=== PATIENT | male | born 1965 | race Caucasian/White ===

== ENCOUNTER → 2019-01-26 | Outpatient (CLI) | payer OTHER | LOC: CAT 09:56 | DX: Z13.6 Encounter for screening for cardiovascular disorders (principal); E78.00 Pure hypercholesterolemia, unspecified; I25.10 Atherosclerotic heart disease of native coronary artery without angina pectoris ==

== ENCOUNTER 2019-03-28 07:53 | Outpatient (CLI) | payer OTHER ==
[2019-03-28] VITALS (15 sets, daily range): BP systolic 111–137; BP diastolic 66–86
[~2019-03-28] VITALS: Ht 180.3 cm; Wt 124.3 kg
[2019-03-28 08:36] LABS: HEMATOCRIT 42.5 % (42.0-52.0); HEMOGLOBIN 14.3 gm/dL (14.0-18.0); MCH 31.4 pg (26.0-34.0); MCHC 33.6 g/dL (28.0-37.0); MCV 93.6 fL (80.0-100.0); RBC 4.54 mil/uL (4.50-6.00); RDW 13.5 % (10.5-14.5); WBC 7.7 thou/uL (4.0-11.0)
[2019-03-28] MEDS ORDERED: TOPROL XL50 MG PO (09:00)
[2019-03-28] MEDS ORDERED: PRINIVIL20 M1 PO (09:00)
[2019-03-28] MEDS ORDERED: LIPITOR 20 MG T20 M1 PO (09:01)
[2019-03-28] MEDS ORDERED: NEXIUM20 MG PO (09:03)
[2019-03-28] MEDS ORDERED: UNICOMPLEX M TA1 TA1 PO (09:03)
[2019-03-28] MEDS ORDERED: FISH OIL 1,001000 M3 (09:04)
[2019-03-28 09:07] LABS: CALCIUM 9.5 mg/dL (8.5-10.1); POTASSIUM 4.2 mmol/L (3.5-5.1)
[2019-03-28] MEDS ORDERED: MAG-OXIDE400 MG PO (09:18)
[2019-03-28] MEDS ORDERED: SLOW FE142 MG PO (09:19)
--- NOTE | 2019-03-28 13:32 | CATHLAB ---
[facility] [place] [place] [address] INVASIVE PROCEDURE REPORT Name: ARTURO TOBIN Room #: REG [facility]#: [id number] Admission: 03/28/19 Attend Phys: Malachi Mackenzie MD Discharge: Date of : 63 Report #: [id number] THIS REPORT FOR: //name// APPROVED REPORT Study performed: 03/28/2019 08:55:34 Patient Details Patient Status: Out-Patient Room #: The patient is a 53 year-old male Event Personnel Malachi Mackenzie Weatherseal Technician, Orlando Carter RN, Rupal Novak RN RN, Kartik Vera RTCheyenne Acevedo David Monitor Procedures Performed Left Heart Cath w/or w/o Coronaries [id number] [facility] w/wo Plasty Single LAD 516548 Indication Dyspnea, Positive stress test Risk Factors Family History, Hypercholesterolemia, Coronary Artery DiseaseHypertension Procedure Narrative The Right Groin^ was infiltrated with 1% Lidocaine subcutaneous anesthesia. A PINNACLE 4FR Sheath #[id number] sheath was inserted into the RFA^. Coronary angiography was performed using coronary diagnostic catheters. The right coronary system was accessed and visualized with a JR4 catheter. The left coronary system was accessed and visualized with a JL4 catheter. The left ventricle was accessed and visualized with a PIGTAIL catheter. Left ventricular/Aortic Valve gradient assessed via catheter pullback. The patient tolerated the procedure well and there were no complications associated with the procedure. Intraoperative Conscious Sedation Fentanyl mcg Versed mg Fluoro Time: 16.01 minutes Dose: DAP 49618.00 cGycm2 Contrast Type and Amount: Omnipaque 85 ml [facility] [place] [address] INVASIVE PROCEDURE REPORT Name: CRISTAARTURO E Room #: REG CL [facility]#: [id number] Admission: 03/28/19 Attend Phys: Malachi Mackenzie MD Discharge: Date of : 63 Report #: [id number] Coronary Angiography The patient's coronary anatomy is right dominant. Diagnostic Cath Left Main The left main artery is a large-caliber vessel, patent with no flow-limiting lesions. LAD The LAD is a moderate size caliber vessel, traversing the anterior wall and wrapping around the apex. Within the mid segment, there is a severe stenosis, 75-80%. Diagonal 1 This is a moderate size caliber vessel, patent with no flow-limiting lesions. Diagonal 2 This is a moderate size caliber vessel, divides into 2 branches. This vessel is patent with no flow-limiting lesions. Circumflex Supplies one OM vessel. OM1 This is a small to moderate size caliber vessel with mild disease in the proximal segment, 30%. Right Coronary This is a dominant vessel with mild disease in the proximal segment, 20%. R PDA This is a moderate size caliber vessel, patent with no flow-limiting lesions. RPLV This is a moderate size caliber vessel, with mild disease in the proximal segment, 30%. Left Ventriculography Left Ventriculography was not performed. Ejection Fraction was >55% based off patient's Echocardiogram. An LVEDP was measured and there is no gradient across the outflow tract. Hemodynamics The aortic pressure is 130/78 mmHg with a mean of 104 mmHg. The left ventricular pressure is 136/13 mmHg with a mean of mmHg. The left ventricular end diastolic pressure is 22 mmHg. There was no gradient across the aortic valve upon pullback. Pullback from the left ventricle to the aorta revealed no gradient across the aortic valve. PCI Technique Lesion Anticoagulation was achieved with Angiomax. Percutaneous coronary intervention was performed on the mid left anterior descending artery segment. The lesion stenosis prior to intervention was 80% with KLEVER 3 flow. A VISTA 6FR JL4 #[id number] Guide Catheter was used to engage the ostium. A Luge Wire .014 x 182CM #[id number] Interventional Guidewire was used to cross the lesion. [facility] [address] [place] [address] INVASIVE PROCEDURE REPORT Name: CRISTAARTURO Bob Room #: REG [facility]..#: [id number] Admission: 03/28/19 Attend Phys: Malachi Mackenzie MD Discharge: Date of : 63 Report #: [id number] BALLOON DILATION A Balloon catheter Euphora RX 2.5 x 10 #[id number] was inserted and inflated up to 14.00atm for 27seconds. Additional Inflation: 10.00atm for 12seconds. Additional Inflation: 14.00atm for 15seconds. STENT DEPLOYMENT A drug-eluting stent RESOLUTE SAIRA RX 3.0 X 12 #[id number] was inserted and inflated up to 12.00atm for 18seconds. POST STENT DEPLOYMENT BALLOON DILATION A Balloon catheter Euphora NC RX 3.0 x 8 #[id number] was inserted and inflated up to 10.00atm for 9seconds. Additional Inflation: 16.00atm for 16seconds. Final angiography reveals 0 % stenosis with KLEVER 3 flow. Conclusion 1. Successful insertion of a drug-eluting stent into the mid segment of the LAD. 2. There is mild disease in the RCA and OM vessel. 3. Normal LV systolic function. 4. Recommend dual antiplatelet therapy and aggressive risk factor management. <ELECTRONICALLY SIGNED> By: Malachi Mackenzie MD 03/28/19 1331 30 133 Malachi Mackenzie MD /INF
--- NOTE | 2019-03-28 19:44 | NUR ---
ASSUMED CARE AT 1300, POST CATH, RIGHT GROIN SITE CLEAN, DRY, INTACT. ON POST OP VITAL SIGNS. HAD A DIFFICULT TIME URINATING, TRIED TO STRAIGT CATH PT W/O SUCCESS, WAS ABLE TO SIT AT THE EDGE AND URINATE. DONE WITH BEDREST AT 1915, GROIN SITE IS CLEAN, DRY, INTACT. WILL CONTINUE TO ASSESS AND ASSIST WITH ADLs NEEDED.
[2019-03-29 00:10] VITALS: BP 130/89
[2019-03-29 04:45] VITALS: BP 128/75
--- NOTE | 2019-03-29 05:41 | NUR ---
PATIENT WAS OFF BEDREST AT SHIFT CHANGE.UP INDEPENDENTLY.VOIDED.MONITOR SHOWS SINUS JORDEN.NO DIZZINESS.POC CONTINUED.
[2019-03-29 05:51] LABS: HEMOGLOBIN 12.7 gm/dL (14.0-18.0); MCH 31.6 pg (26.0-34.0); MCHC 33.4 g/dL (28.0-37.0); MCV 94.5 fL (80.0-100.0); RBC 4.02 mil/uL (4.50-6.00); RDW 13.8 % (10.5-14.5); WBC 8.7 thou/uL (4.0-11.0)
[2019-03-29 06:20] LABS: ALBUMIN 3.1 g/dL (3.4-5.0); CALCIUM 8.6 mg/dL (8.5-10.1); CREATININE 0.9 mg/dL (0.7-1.3); POTASSIUM 4.1 mmol/L (3.5-5.1); TOTAL BILIRUBIN 0.8 mg/dL (<0.1-1.0); TOTAL PROTEIN 6.7 g/dL (6.4-8.2)
[2019-03-29 07:40] VITALS: BP 141/94
[2019-03-29] MEDS ORDERED: EFFIENT10 MG PO (08:31)
[2019-03-29] MEDS ORDERED: ASPIR 8181 MG PO (08:32)
[2019-03-29 09:16] VITALS: BP 128/75
--- NOTE | 2019-03-29 11:16 | NUR ---
ASSUMED CARE AT 0700, SHIFT ASSESEMENT DONE, MEDS GIVEN, VSS. DENIES PAIN, NAUSEA, VOMITING. CATH SITE IS CLEAN, DRY, INTACT. DISCHARGE ORDER RECEIVED, PERIPHERAL IV WAS TAKEN OUT. DC PAPER WORK GIVEN. WILL BE LEAVING WITH FAMILY SOON.
--- NOTE | 2019-03-30 17:08 | EKG ---
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
--- NOTE | 2019-03-30 17:14 | EKG ---
[place] [address] [place] [address] ELECTROCARDIOGRAM REPORT Name: ARTURO TOBIN Room #: DEP OMID Gomez#: [id number] Admission: 03/28/19 Attend Phys: Malachi Mackenzie MD Discharge: 03/29/19 Date of : 63 Report #: [id number] THIS REPORT FOR: //name// [facility] Test Date: 2019-03-29 Test Time: 07:07:22 Pat Name: ARTURO TOBIN Department: Room: 205 P Gender: M Clerical Clerk: Lev GORDON : 1965 Requested By: Malachi Mackenzie Order Number: [id number] MD: Zackary Mcdaniels Measurements Intervals [place] Rate: 61 P: 24 [place]: 136 QRS: 27 QRSD: 93 T: 15 QT: 400 QTc: 403 Interpretive Statements Sinus rhythm Ventricular premature complex Abnormal R-wave progression, early transition No previous ECG available for comparison Electronically Signed On 03-30-2019 17:14:07 HOUSE MANAGER by Zackary Mcdaniels [email or web address] <ELECTRONICALLY SIGNED> By: Zackary Mcdaniels MD 03/30/19 1714 D: 01/706 6 Zackary Mcdaniels MD /ALEJO
--- NOTE | 2019-04-04 08:15 | D ---
[facility] [place] [address] DISCHARGE SUMMARY Name: ARTURO TOBIN Room #: DEP Michelle Gomez#: [id number] Admission: 03/28/19 Attend Phys: Malachi Mackenzie MD Discharge: 03/29/19 Date of : 63 Report #: [id number] THIS REPORT FOR: //name// CC: Malachi Patel DATE OF SERVICE: 03/29/2019 FINAL DIAGNOSES: 1. Coronary artery disease, status post PCI. 2. Coronary artery calcium. 3. Hypertension. 4. Hypercholesterolemia. 5. Arthritis. 6. Gastroesophageal reflux disease. 7. Strong family history for premature coronary artery disease. HOSPITAL COURSE: Please see the original H and P for full details. The patient has multiple CAD risk factors including coronary artery calcium. He presented with silent ischemia. A nuclear stress test revealed apical ischemia. Please see the cardiac catheterization report for full details. He was found to have a severe occlusion in the mid LAD. Angioplasty was performed with placement of one drug-eluting stent. He has remained hemodynamically stable overnight. He is given instructions regarding his care and compliance with medications including aspirin/Effient. All questions were answered. FINAL DISPOSITION: He will continue metoprolol XL 50 mg daily, lisinopril 20 mg daily, Lipitor 20 mg daily, ____ aspirin once a day and Effient 10 mg daily. He is given a followup appointment. <ELECTRONICALLY SIGNED> By: Malachi Mackenzie MD 04/04/1915 8 Malachi Mackenzie MD /danielle
== END 2019-03-29 12:03 | disposition home or self-care (01) ==
LOC: CATH 07:53 → 2N 12:07 → CATH 17:03 → ENTRNSPT 03-29 11:18 → CATH 03-29 12:03
PROVIDERS: Internal Medicine Cardiovascular Disease
DX: R94.39 Abnormal result of other cardiovascular function study (principal); I25.10 Atherosclerotic heart disease of native coronary artery without angina pectoris; I10 Essential (primary) hypertension; E78.00 Pure hypercholesterolemia, unspecified; Z82.49 Family history of ischemic heart disease and other diseases of the circulatory system; Z79.82 Long term (current) use of aspirin; Z79.899 Other long term (current) drug therapy
CPT/HCPCS: 10081

== ENCOUNTER → 2019-12-20 | Outpatient (CLI) | payer OTHER ==
[~2019-12-20] MED LIST: ASPIR 8181 MG PO; EFFIENT10 MG PO; FISH OIL 1,001000 M3; LIPITOR 20 MG T20 M1 PO; MAG-OXIDE400 MG PO; NEXIUM20 MG PO; PRINIVIL20 M1 PO; SLOW FE142 MG PO; TOPROL XL50 MG PO; UNICOMPLEX M TA1 TA1 PO
== END ==
LOC: MRI 13:11
PROVIDERS: ATTEND Neuromusculoskeletal Medicine & OMM
DX: M25.462 Effusion, left knee (principal)

== ENCOUNTER → 2020-01-26 | Outpatient (CLI) | payer OTHER | LOC: SJCVCIMAG 09:18 | PROVIDERS: ATTEND Internal Medicine Cardiovascular Disease | DX: I25.10 Atherosclerotic heart disease of native coronary artery without angina pectoris (principal); R06.00 Dyspnea, unspecified; I10 Essential (primary) hypertension ==

== ENCOUNTER 2020-08-11 15:38 | Emergency (ER) | payer OTHER ==
[~2020-08-11] VITALS: Ht 180.3 cm; Wt 121.6 kg
[2020-08-11] MEDS ORDERED: CRESTOR10 MG PO (15:51)
[2020-08-11] MEDS ORDERED: NORCO5 PO (15:53)
[2020-08-11 18:41] LABS: SOURCE SYNOVIAL
[2020-08-11 18:42] LABS: CLARITY CLOUDY; COLOR RED; TOTAL VOLUME 30 mL
[2020-08-11 19:11] LABS: BF MACROPHAGE 9 %; BF NEUTROPHILS 89 %
[2020-08-11 19:53] LABS: BF CRYSTALS No Crystals seen (NONE SEEN); SOURCE SYNOVIAL
[2020-08-11 20:29] VITALS: BP 147/86
== END 2020-08-11 20:31 | disposition home or self-care (01) ==
LOC: ER 15:38
PROVIDERS: Nurse Practitioner
DX: G89.18 Other acute postprocedural pain (principal); M25.461 Effusion, right knee; Z79.82 Long term (current) use of aspirin; Z90.89 Acquired absence of other organs

== ENCOUNTER → 2021-04-01 | Outpatient (CLI) | payer BC ==
[~2021-04-01] MED LIST changes: +CRESTOR10 MG PO; +NORCO5 PO
== END ==
LOC: SJCVCIMAG 09:18
PROVIDERS: ATTEND Internal Medicine Cardiovascular Disease
DX: I25.10 Atherosclerotic heart disease of native coronary artery without angina pectoris (principal); E78.5 Hyperlipidemia, unspecified; I10 Essential (primary) hypertension; R06.00 Dyspnea, unspecified